=== PATIENT | female | born 1995 | race African-American/Black ===

== ENCOUNTER 2017-11-03 02:13 | Emergency (ER) | payer OTHER ==
[~2017-11-03] VITALS: Ht 167.6 cm; Wt 57.4 kg
[2017-11-03 02:13] VITALS: BP 136/112
--- NOTE | 2017-11-03 02:25 | NUR ---
TO BED # 9 AMBULATORY, CAME IN WITH C/O RUQ PAIN, BILATERAL FLANK PAIN, AN HOUR AGO, WITH NAUSEA, DIARRHEA AND DYSURIA.
[2017-11-03] MEDS ORDERED: DICYCLOMINE HCL LIQUID 20 MG, ALUMINUM HYD/MAG/SIMETHICONE 30 ML, LIDOCAINE VISCOUS 2% ... PO ONE ×3 (02:35)
--- NOTE | 2017-11-03 03:18 | NUR ---
Patient discharged with v/s stable. Written and verbal after care instructions given and explained. Patient alert, oriented and verbalized understanding of instructions. Ambulatory with steady gait. All questions addressed prior to discharge. ID band removed. Patient advised to follow up with PMD. Rx of protonix, mylanta given. Patient educated on indication of medication including possible reaction and side effects. Opportunity to ask questions provided and answered.
[2017-11-03 03:19] VITALS: BP 118/59
== END 2017-11-03 02:25 | disposition home or self-care (01) ==
LOC: MED 02:13
DX: K29.70 Gastritis, unspecified, without bleeding (principal)
CPT/HCPCS: 81002; 81025; 99283

== ENCOUNTER 2017-11-03 19:41 | Emergency (ER) | payer OTHER ==
[~2017-11-03] VITALS: Ht 167.6 cm; Wt 56.8 kg
[2017-11-03 20:04] VITALS: BP 147/75
--- NOTE | 2017-11-03 20:07 | NUR ---
PT NEEDS MD NOTE FOR BEING SEEN LAST NIGHT PT DENIES N/V/D; SKIN IS PINK/WARM/DRY; AAOX4 WITH EVEN AND STEADY GAIT; LUNGS CLEAR BL; HR EVEN AND REGULAR; PT DENIES ANY FEVER, CP, SOB, OR COUGH AT THIS TIME; PATIENT STATES PAIN OF 0/10 AT THIS TIME; VSS; PATIENT POSITIONED FOR COMFORT; HOB ELEVATED; BEDRAILS UP X2; BED DOWN. ER MD MADE AWARE OF PT STATUS.
--- NOTE | 2017-11-03 20:09 | NUR ---
Patient discharged with v/s stable. Written and verbal after care instructions given and explained. Patient verbalized understanding. Ambulatory with steady gait. All questions addressed prior to discharge. Advised to follow up with PMD.
[2017-11-03 20:10] VITALS: BP 147/75
== END 2017-11-03 20:09 | disposition home or self-care (01) ==
LOC: MED 19:41
DX: R10.10 Upper abdominal pain, unspecified (principal); J45.909 Unspecified asthma, uncomplicated
CPT/HCPCS: 99281

== ENCOUNTER 2018-01-21 13:53 | Emergency (ER) | payer OTHER ==
[~2018-01-21] VITALS: Ht 167.6 cm; Wt 56.2 kg
[2018-01-21 13:57] VITALS: BP 120/72
--- NOTE | 2018-01-21 14:49 | NUR ---
PT AMBULATED TO ER BED 9.
--- NOTE | 2018-01-21 16:34 | NUR ---
22/F PRESENT TO ER C/O VAGINAL BLEEDING. PT STATES SHE NOTICED IT ONE MONTH AGO AND THE BLEEDING GOT WORST 3 DAYS AGO. LMP 12/26/2017 HX: ASTHMA MEDS: NONE
[2018-01-21 17:04] LABS: BASOPHILS % (AUTO) 0.3 % (0.0-2.0); EOSINOPHILS # (AUTO) 0.2 K/uL (0-0.4); EOSINOPHILS % (AUTO) 3.8 % (0.0-4.0); HEMATOCRIT 43.6 % (36-48); HEMOGLOBIN 14.2 g/dL (12.0-16.0); LYMPHOCYTES # (AUTO) 1.7 K/uL (2.5-16.5); MEAN CORPUSCULAR HEMOGLOBIN 31 pg (27-31); MEAN CORPUSCULAR HGB CONC 33 g/dL (33-37); MEAN CORPUSCULAR VOLUME 94.4 fL (80-94); MONOCYTES # (AUTO) 0.4 K/uL (0.8-1.0); NEUTROPHILS # (AUTO) 2.7 K/uL (1.8-7.7); NEUTROPHILS % (AUTO) 53.9 % (42.2-75.2); PLATELET COUNT (AUTO) 229 K/uL (140-450); RED BLOOD CELL COUNT(AUTO) 4.62 MIL/uL (4.20-5.40); RED CELL DISTRIBUTION WIDTH 12.8 % (11.6-13.7); WHITE BLOOD COUNT (AUTO) 5.1 K/uL (4.5-11.0)
[2018-01-21 17:05] LABS: APPEARANCE,URINE CLEAR (CLEAR); BILIRUBIN,URINE NEGATIVE (NEGATIVE); BLOOD, URINE NEGATIVE (NEGATIVE); COLOR,URINE YELLOW (YELLOW); LEUKOCYTE ESTERASE ,URINE NEGATIVE (NEGATIVE); NITRITE, URINE NEGATIVE (NEGATIVE); UGLUCOSE NEGATIVE (NEGATIVE)
[2018-01-21 17:22] LABS: PROTHROMBIN TIME 10.9 secs (10.8-13.4)
[2018-01-21 17:47] VITALS: BP 119/68
== END 2018-01-21 17:48 | disposition home or self-care (01) ==
LOC: MED 13:53
DX: N93.8 Other specified abnormal uterine and vaginal bleeding (principal); J45.909 Unspecified asthma, uncomplicated
CPT/HCPCS: 36415; 76856; 81003; 81025; 84702; 85025; 85610; 85730; 99285; Q0092

== ENCOUNTER 2019-01-26 18:52 | Emergency (ER) | payer OTHER ==
[~2019-01-26] VITALS: Ht 167.6 cm; Wt 64.0 kg
--- NOTE | 2019-01-26 19:13 | NUR ---
TO LOBBY A/W BED, AMBULATORY
[2019-01-26 19:15] VITALS: BP 116/66
--- NOTE | 2019-01-26 19:32 | NUR ---
PT AMBULATED TO BED
--- NOTE | 2019-01-26 19:40 | NUR ---
C/O 5/10 GENERALIZED DIFFUSE ABD PAIN ON AND OFF X 1 MONTH WITH INTERMITTENT DIARRHEA FOR 3 WEEKS. DENIES VOMITING, URINARY BURNING/PAIN. PMH-- DENIES
[2019-01-26 20:25] VITALS: BP 116/66
--- NOTE | 2019-01-26 20:25 | NUR ---
Patient discharged with v/s stable. Written and verbal after care instructions given and explained. Patient alert, oriented and verbalized understanding of instructions. Ambulatory with steady gait. All questions addressed prior to discharge. ID band removed. Patient advised to follow up with PMD. Rx of Omeprazole given. Patient educated on indication of medication including possible reaction and side effects. Opportunity to ask questions provided and answered.
== END 2019-01-26 20:25 | disposition home or self-care (01) ==
LOC: MED 18:52
DX: K29.70 Gastritis, unspecified, without bleeding (principal); J45.909 Unspecified asthma, uncomplicated; F15.90 Other stimulant use, unspecified, uncomplicated
CPT/HCPCS: 81002; 81025; 99282

== ENCOUNTER 2019-08-13 01:54 | Emergency (ER) | payer OTHER ==
[~2019-08-13] VITALS: Ht 167.6 cm; Wt 61.2 kg
[2019-08-13 02:01] VITALS: BP 146/43
[2019-08-13] MEDS ORDERED: LORazepam 1 MG TAB PO ONE (02:10)
--- NOTE | 2019-08-13 02:10 | NUR ---
23 YEAR OLD FEMALE COMPLAINS OF SHORTNESS OF BREATH, HEART RACING, AND HEADACHE AFTER SMOKING MARIJUANA 30 MINUTES AGO. LUNGS CTABL, SPO2 100%, RR 18. PATIENT AOX4, BREATHING EVEN AND UNLABORED, SKIN WARM AND DRY. BED IN LOWEST POSITION, LOCKED, BED RAIL UPX1. PMH - ASTHMA ALLERGIES - NKA
[2019-08-13 02:57] VITALS: BP 145/47
--- NOTE | 2019-08-13 02:57 | NUR ---
Patient discharged with v/s stable. Written and verbal after care instructions about anxiety and panic attacks, and marijuana abuse given and explained. Patient verbalized understanding. Ambulatory with steady gait. All questions addressed prior to discharge. Advised to follow up with PMD.
== END 2019-08-13 02:57 | disposition home or self-care (01) ==
LOC: MED 01:54
DX: F41.9 Anxiety disorder, unspecified (principal); F12.90 Cannabis use, unspecified, uncomplicated; J45.909 Unspecified asthma, uncomplicated
CPT/HCPCS: 99283

== ENCOUNTER 2019-09-06 08:13 | Emergency (ER) | payer OTHER ==
[~2019-09-06] VITALS: Ht 170.2 cm; Wt 59.0 kg
[2019-09-06 08:22] VITALS: BP 134/89
--- NOTE | 2019-09-06 08:25 | NUR ---
AMBULATED TO ER BED 4
--- NOTE | 2019-09-06 08:30 | NUR ---
C/O AWOKE WITH ANXIETY THIS MORNING--
[2019-09-06 08:38] VITALS: BP 134/89
== END 2019-09-06 08:38 | disposition home or self-care (01) ==
LOC: MED 08:13
DX: F41.1 Generalized anxiety disorder (principal); G47.00 Insomnia, unspecified; R03.0 Elevated blood-pressure reading, without diagnosis of hypertension; J45.909 Unspecified asthma, uncomplicated; F12.90 Cannabis use, unspecified, uncomplicated
CPT/HCPCS: 99281

== ENCOUNTER 2022-04-04 02:49 | Emergency (ER) | payer SELFPAY ==
[~2022-04-04] VITALS: Ht 167.6 cm; Wt 62.1 kg
[2022-04-04 03:18] VITALS: BP 126/76
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
--- NOTE | 2022-04-04 03:54 | NUR ---
Patient ambulated with strong gait to room 9. Patient on monitor, A/Ox4, chest rise and fall symmetrical, no s/s of distress.
[2022-04-04 05:05] VITALS: BP 117/76
[2022-04-04] MEDS ORDERED: IBUP-2213 PO (05:47)
[2022-04-04] MEDS ORDERED: AMOX-1230 PO (05:47)
== END 2022-04-04 06:06 | disposition home or self-care (01) ==
LOC: MED 02:49
DX: S60.221A Contusion of right hand, initial encounter (principal); J45.909 Unspecified asthma, uncomplicated; Y04.1XXA Assault by human bite, initial encounter; Y93.89 Activity, other specified; Y92.89 Other specified places as the place of occurrence of the external cause; Y99.8 Other external cause status
CPT/HCPCS: 73130; 73140; 90471; 90715; 99284; Q0092

== ENCOUNTER 2023-09-01 05:39 | Emergency (ER) | payer SELFPAY ==
[~2023-09-01] VITALS: Ht 167.6 cm; Wt 60.3 kg
[~2023-09-01 05:39] MED LIST: AMOX-1230 PO; IBUP-2213 PO
[2023-09-01 05:47] VITALS: BP 120/94; PULSE 65; RESP 20; TEMP 97.1; O2SAT 99
[2023-09-01] MEDS: FAMOTIDINE 20 MG/2 ML VIAL IVP ONE (06:29)
[2023-09-01] MEDS: ONDANSETRON 4 MG/2 ML VIAL IVP ONE (06:29)
[2023-09-01] MEDS: NACL 0.9% 1,000 ML IV SCH (06:30)
[2023-09-01 07:01] LABS: BASOPHILS % (AUTO) 0.5 % (0.0-2.0); EOSINOPHILS % (AUTO) 0.3 % (0.0-4.0); HEMATOCRIT 41.5 % (36-48); LYMPHOCYTES # (AUTO) 0.9 K/uL (2.5-16.5); LYMPHOCYTES % (AUTO) 19.9 % (20.5-51.1); MEAN CORPUSCULAR HEMOGLOBIN 32 pg (27-31); MEAN CORPUSCULAR HGB CONC 34 g/dL (33-37); MEAN CORPUSCULAR VOLUME 95.1 fL (80-94); MONOCYTES # (AUTO) 0.3 K/uL (0.8-1.0); MONOCYTES % (AUTO) 5.6 % (1.7-9.3); NEUTROPHILS # (AUTO) 3.3 K/uL (1.8-7.7); NEUTROPHILS % (AUTO) 73.7 % (42.2-75.2); PLATELET COUNT (AUTO) 228 K/uL (140-450); RED BLOOD CELL COUNT(AUTO) 4.36 MIL/uL (4.20-5.40); RED CELL DISTRIBUTION WIDTH 13.2 % (11.6-13.7); WHITE BLOOD COUNT (AUTO) 4.5 K/uL (4.8-10.8)
[2023-09-01 07:19] LABS: ALBUMIN 4.3 g/dL (3.4-5.0); BILIRUBIN,DIRECT 0.1 mg/dL (0.0-0.3); TOTAL BILIRUBIN 0.7 mg/dL (0.0-1.0); TOTAL PROTEIN, SERUM 8.1 g/dL (6.4-8.2)
[2023-09-01 07:27] LABS: ANION GAP 18.3 (8-16); CARBON DIOXIDE 22.9 mmol/L (21-32); POTASSIUM 4.2 mmol/L (3.5-5.1)
[2023-09-01] MEDS ORDERED: FAMO-90 PO (08:01)
[2023-09-01] MEDS ORDERED: ONDA-188 SL (08:01)
[2023-09-01 08:12] VITALS: BP 120/94; PULSE 65; RESP 20; TEMP 97.1; O2SAT 99
[2023-09-01 08:58] LABS: APPEARANCE,URINE CLEAR (CLEAR); BILIRUBIN,URINE NEGATIVE (NEGATIVE); BLOOD, URINE NEGATIVE (NEGATIVE); COLOR,URINE YELLOW (YELLOW); LEUKOCYTE ESTERASE ,URINE NEGATIVE (NEGATIVE); NITRITE, URINE NEGATIVE (NEGATIVE); PH,URINE 8.5 (5.0-9.0); PROTEIN,URINE 1+ (NEGATIVE); UGLUCOSE NEGATIVE (NEGATIVE)
[2023-09-01 09:10] LABS: BACTERIA,URINE FEW /HPF (None Seen); RBC,URINE 0-5 /HPF (0-5); SQUAMOUS EPITHELIAL CELL,UR 0-3 (FEW) /LPF (0-3 (FEW)); WBC,URINE 0-5 /HPF (0-5)
== END 2023-09-01 08:12 | disposition home or self-care (01) ==
LOC: MED 05:39
DX: R10.84 Generalized abdominal pain (principal); R11.2 Nausea with vomiting, unspecified; R19.7 Diarrhea, unspecified; E86.0 Dehydration; Z79.899 Other long term (current) drug therapy
CPT/HCPCS: 36415; 80048; 80076; 81001; 81025; 83690; 85025; 96361; 96374; 96375; 99284; J2405; J3490; J7030